=== PATIENT | male | born 1930 | race Caucasian/White ===

== ENCOUNTER 2018-05-17 11:34 | Inpatient (IN) | payer MEDICARE ==
[2018-05-17] MEDS ORDERED: SODIUM CHLORIDE 0.9% 1,000 ML IV STA (11:51)
[2018-05-17] MEDS ORDERED: SODIUM CHLORIDE 0.9% 500 ML IV ONE (11:53)
[2018-05-17 13:00] LABS: ALT 42 U/L (21-72); AST 75 U/L (17-59); Albumin 4.4 g/dL (3.5-5.0); Alkaline Phosphatase 87 U/L (38-126); Anion Gap 14 mmol/L; Blood Urea Nitrogen 18 mg/dL (9-20); Calcium 9.3 mg/dL (8.4-10.2); Carbon Dioxide 23 mmol/L (22-30); Chloride 100 mmol/L (98-107); Glucose 92 mg/dL (74-99); Potassium 3.7 mmol/L (3.5-5.1); Sodium 137 mmol/L (137-145); Total Bilirubin 1.2 mg/dL (0.2-1.3); Total Protein 6.4 g/dL (6.3-8.2)
[2018-05-17 13:03] LABS: HCT 44.6 % (39.0-53.0); HGB 15.4 gm/dL (13.0-17.5); MCH 31.4 pg (25.0-35.0); MCHC 34.5 g/dL (31.0-37.0); Mean Platelet Volume 7.6; Platelet Count 205 k/uL (150-450); RBC 4.91 m/uL (4.30-5.90); RDW 13.8 % (11.5-15.5)
[2018-05-17 13:05] LABS: INR 1.1 (<1.2); Partial Thromboplastin Time 24.6 sec (22.0-30.0); Prothrombin Time 10.4 sec (9.0-12.0)
[2018-05-17 13:27] LABS: Troponin I 0.029 ng/mL (0.000-0.034)
[2018-05-17 13:30] LABS: Creatine Kinase MB 14.2 ng/mL (0.0-2.4)
[2018-05-17 13:43] LABS: Band Neutrophils % 1 %; Lymphocytes # (M) 9.02 k/uL (1.0-4.8); Monocytes # (M) 0.22 k/uL (0-1.0); Neutrophils % (M) 58 %; Nucleated Red Blood Cells 0 /100 WBC (0-0); Total Cells Counted 200
--- NOTE | 2018-05-17 13:46 | CT ---
EXAMINATION TYPE: CT brain sylvia joseph DATE OF EXAM: 05/17/2018 COMPARISON: NONE HISTORY: Fall injury with headache and neck pain CT DLP: 1814.5 mGycm. Automated Exposure Control for Dose Reduction was Utilized. TECHNIQUE: CT scan of the head and cervical spine are performed without contrast. FINDINGS: There is no acute intracranial hemorrhage or midline shift identified. There is ventricul ar and sulcal prominence. Tadeo-white matter differentiation is fairly well preserved. Scleral calcifi cation both globes is present visualized paranasal sinuses are clear. There is vascular calcification distal internal carotid arteries bilaterally. The calvarium is intact. Cervical spine is visualized in its entirety from C1 through upper thoracic levels and demonstrates d extroconvex scoliotic curvature without evidence of acute fracture or dislocation. Prevertebral soft tissue appears within normal limits. The C1-C2 articulation is within normal limits on the coronal images. Vertebral body heights are maintained. There is moderate multilevel disc space narrowing C3-C4 throug h C5-C6 level. Spinal canal is grossly preserved. Review of axial images shows multilevel uncovertebr al facet degenerative changes contributing to multilevel neural foraminal narrowing. There is mild bi apical pleural/parenchymal scarring. There is moderate calcified plaque at bilateral carotid bulbs, l eft greater than right incidentally seen. Lung apices are clear. Thyroid gland is felt unremarkable. IMPRESSION: 1. There is no acute fracture or dislocation evident in the cervical spine. 2. No acute intracranial hemorrhage or midline shift is seen. Fairly moderate diffuse cerebral atroph y is noted.
[2018-05-17 13:48] LABS: Anisocytosis (M) Present
--- NOTE | 2018-05-17 13:50 | CT ---
EXAMINATION TYPE: CT ChestAbdPelvis w con DATE OF EXAM: 05/17/2018 COMPARISON: NONE HISTORY: Fall injury with pain. CT DLP: 1352.8 mGycm. Automated Exposure Control for Dose Reduction was Utilized. CONTRAST: CT scan of the thorax, abdomen and pelvis is performed with IV Contrast, patient injected with 100 mL of Isovue 300. Trauma protocol. FINDINGS: LUNGS: Dependent atelectasis in both lower lobes more prominent near diaphragms is redemonstrated. Th ere is mild biapical pleural/parenchymal scarring. No pleural effusion or pneumothorax is present. Tr acheobronchial tree is patent. MEDIASTINUM: There are no greater than 1 cm hilar or mediastinal lymph nodes. No cardiomegaly or pe ricardial effusion is seen. Coronary artery calcification is seen which is noted marker for coronary artery disease. OTHER: Bilateral gynecomastia is appreciated. LIVER/GB: No significant abnormality is appreciated. PANCREAS: No significant abnormality is seen. SPLEEN: No significant abnormality is seen. ADRENALS: No significant abnormality is seen. KIDNEYS: No significant abnormality is seen. BOWEL: Diverticula are seen throughout the colon most prominent in the left and sigmoid colon. There is no CT evidence for acute diverticulitis. There is suspected 1.8 cm lipoma or fat density ingested pill in the third portion of duodenum coronal image 53. No suspicious small or large bowel dilatation is present. GENITAL ORGANS: No gross abnormality seen. LYMPH NODES: No greater than 1cm abdominal or pelvic lymph nodes are appreciated. OSSEOUS STRUCTURES: Osseous structures are demineralized. There is mild to moderate compression type fracture deformity L2 level felt chronic as there is no suspicious lucency identified. There is mild to moderate multilevel anterior and lateral spurring in the thoracic spine. There is postsurgical jayy nge right humeral head. There is multilevel facet arthropathy in the mid to lower lumbar spine. There is spurring at bilateral sacroiliac joints. OTHER: There is mild to moderate calcified plaque of aorta extending into branch vessels. IMPRESSION: Mild to moderate compression type fracture L2 level favored chronic otherwise no acute os seous fracture, abnormal fluid collection, or evidence of solid organ injury in the thorax, abdomen, or pelvis. Correlate clinically.
--- NOTE | 2018-05-17 14:20 | XR ---
EXAMINATION TYPE: XR pelvis AP view DATE OF EXAM: 05/17/2018 COMPARISON: NONE HISTORY: Trauma, pain, fall TECHNIQUE: AP pelvis FINDINGS: Femoral heads articulate with the acetabulum. No acute fractures are evident. Sacroiliac chad ints and symphysis pubis are normal. Nonspecific bowel gas is present. Contrast is within urinary adrian dder. IMPRESSION: 1. No acute osseous abnormality pelvis
--- NOTE | 2018-05-17 14:21 | XR ---
EXAMINATION TYPE: XR chest 1V portable DATE OF EXAM: 05/17/2018 COMPARISON: NONE INDICATION: Trauma TECHNIQUE: Single frontal view of the chest is obtained. FINDINGS: The heart size is normal. The pulmonary vasculature is normal. The lungs are clear. No pneumothorax is evident. No displaced rib fractures are identified. IMPRESSION: 1. No acute pulmonary process.
[2018-05-17] MEDS ORDERED: cefTRIAXone 2,000 MG in SODIUM CHLORIDE 0.9% 100 ML IVPB STA (15:39)
[2018-05-17] MEDS ORDERED: SODIUM CHLORIDE 0.9% 1,000 ML IV ONE (15:40)
[2018-05-17] MEDS ORDERED: cefTRIAXone IN SWFI 2,000 MG/20 ML SYRINGE IVP ONE (15:45)
[2018-05-17] MEDS ORDERED: ONDANSETRON 4 MG/2 ML VIAL IVP PRN (15:55)
[2018-05-17] MEDS ORDERED: ACETAMINOPHEN TAB 325 MG TAB PO PRN (15:55)
[2018-05-17] MEDS ORDERED: NALOXONE 0.4 MG/ML 1 ML VIAL IV PRN (15:55)
--- NOTE | 2018-05-17 15:55 | ED ---
Fall HPI - General Chief Complaint: Fall Stated Complaint: Fall Time Seen by Provider: 05/17/18 11:46 Source: patient, EMS Mode of arrival: EMS - History of Present Illness Initial Comments: 27 years old male fell last night, he was unable to get up till this morning now when his neighbor's came to help he didn't fall from a height he said whole fellow male is complaining about the headache neck pain some discomfort in the torso no abdominal pain is complaining about the back pain and he has a history of back surgery complaining about the pain in the both hips and complaining about generalized weakness. No signs of TIA or CVA at this time - Related Data Home Medications Medication Instructions Recorded Confirmed Citalopram Hydrobromide [CeleXA] 20 mg PO DAILY 05/17/18 05/17/18 Furosemide [Lasix] 20 mg PO DAILY 05/17/18 05/17/18 Latanoprost [Xalatan 0.005%] 1 drop BOTH EYES HS 05/17/18 05/17/18 Potassium Chloride ER [K-Dur 10] 10 meq PO BID 05/17/18 05/17/18 Pravastatin Sodium [Pravachol] 10 mg PO HS 05/17/18 05/17/18 Tamsulosin HCl [Flomax] 0.4 mg PO Q12H 05/17/18 05/17/18 Travoprost [Travatan Z 0.004%] 1 drop BOTH EYES HS 05/17/18 05/17/18 metroNIDAZOLE 0.75% CREAM 1 applic TOPICAL BID PRN 05/17/18 05/17/18 [Metrocream] Allergies Allergy/AdvReac Type Severity Reaction Status Date / Time No Known Allergies Allergy Verified 05/17/18 12:28 Review of Systems ROS Statement: Those systems with pertinent positive or pertinent negative responses have been documented in the HPI. ROS Other: All systems not noted in ROS Statement are negative. Past Medical History Past Medical History: Hypertension Additional Past Medical History / Comment(s): Arthritis, bladder infections History of Any Multi-Drug Resistant Organisms: None Reported Past Surgical History: No Surgical Hx Reported Past Psychological History: No Psychological Hx Reported Smoking Status: Never smoker Past Alcohol Use History: None Reported Past Drug Use History: None Reported General Exam - General Exam Comments Initial Comments: General: The patient is awake and alert, GSS is 15, he is moderately distressed Skin: Skin is warm and dry and no rashes or lesions are noted. Eye: Pupils are equal, round and reactive to light, extra-ocular movements are intact; there is normal conjunctiva bilaterally. Ears, nose, mouth and throat: There are moist mucous membranes and no oral lesions. Neck: The neck is read C5 and C6 Cardiovascular: There is a regular rate and rhythm. No murmur, rub or gallop is appreciated. Respiratory: To auscultation bilateral, his breath sounds bilateral Gastrointestinal: Soft, non-distended, non-tender abdomen without masses or organomegaly noted. There is no rebound or guarding present. Bowel sounds are unremarkable. Back: There is under area over the L4 and L5 Musculoskeletal: Normal ROM, no tenderness, There is no pedal edema. There is no calf tenderness or swelling. No cords were appreciated. Neurological: CN II-XII intact, Cranial nerves III through XII are intact. There are no obvious motor or sensory deficits. Coordination appears grossly intact. Speech is normal. Psychiatric: Cooperative, appropriate mood & affect, normal judgment. Limitations: no limitations Course Vital Signs 05/17/18 05/17/18 05/17/18 11:38 12:30 15:00 Temperature 97.6 F Pulse Rate 99 92 Pulse Rate [ 96 Bilateral Radial] Respiratory 18 20 Rate Blood Pressure 191/81 171/78 O2 Sat by Pulse 99 96 Oximetry EKG is sinus rhythm with a first-degree block ventricular rate is 97 CT interval is 226 QRS duration is 114 QT/QTc is 390/495 review of this EKG does not reveal any ST elevation or ST depression Family medical Dr. Watson service considering urinary abdomen analysis well consult the Dr. Duvall Medical Decision Making - Lab Data Result diagrams: 05/17/18 12:30 05/17/18 12:30 Lab Results 05/17/18 05/17/18 05/17/18 Range/Units 12:30 12:30 12:30 WBC 22.0 H (3.8-10.6) k/uL RBC 4.91 (4.30-5.90) m/uL Hgb 15.4 (13.0-17.5) gm/dL Hct 44.6 (39.0-53.0) % MCV 91.0 (80.0-100.0) fL MCH 31.4 (25.0-35.0) pg MCHC 34.5 (31.0-37.0) g/dL RDW 13.8 (11.5-15.5) % Plt Count 205 (150-450) k/uL Neutrophils % (Manual) 58 % Band Neutrophils % 1 % Lymphocytes % (Manual) 41 % Monocytes % (Manual) 1 % Neutrophils # (Manual) 12.90 H (1.3-7.7) k/uL Lymphocytes # (Manual) 9.02 H (1.0-4.8) k/uL Monocytes # (Manual) 0.22 (0-1.0) k/uL Nucleated RBCs 0 (0-0) /100 WBC Anisocytosis (manual) Present PT (9.0-12.0) sec INR (<1.2) APTT (22.0-30.0) sec Sodium 137 (137-145) mmol/L Potassium 3.7 (3.5-5.1) mmol/L Chloride 100 (98-107) mmol/L Carbon Dioxide 23 (22-30) mmol/L Anion Gap 14 mmol/L BUN 18 (9-20) mg/dL Creatinine 0.71 (0.66-1.25) mg/dL Est GFR (CKD-EPI)AfAm >90 (>60 ml/min/1.73 sqM) Est GFR (CKD-EPI)NonAf 86 (>60 ml/min/1.73 sqM) Glucose 92 (74-99) mg/dL Plasma Lactic Acid Abbe (0.7-2.0) mmol/L Calcium 9.3 (8.4-10.2) mg/dL Total Bilirubin 1.2 (0.2-1.3) mg/dL AST 75 H (17-59) U/L ALT 42 (21-72) U/L Alkaline Phosphatase 87 (38-126) U/L Total Creatine Kinase 2855 H (55-170) U/L CK-MB (CK-2) 14.2 H* (0.0-2.4) ng/mL CK-MB (CK-2) Rel Index Troponin I 0.029 (0.000-0.034) ng/mL Total Protein 6.4 (6.3-8.2) g/dL Albumin 4.4 (3.5-5.0) g/dL 05/17/18 05/17/18 Range/Units 12:30 12:30 WBC (3.8-10.6) k/uL RBC (4.30-5.90) m/uL Hgb (13.0-17.5) gm/dL Hct (39.0-53.0) % MCV (80.0-100.0) fL MCH (25.0-35.0) pg MCHC (31.0-37.0) g/dL RDW (11.5-15.5) % Plt Count (150-450) k/uL Neutrophils % (Manual) % Band Neutrophils % % Lymphocytes % (Manual) % Monocytes % (Manual) % Neutrophils # (Manual) (1.3-7.7) k/uL Lymphocytes # (Manual) (1.0-4.8) k/uL Monocytes # (Manual) (0-1.0) k/uL Nucleated RBCs (0-0) /100 WBC Anisocytosis (manual) PT 10.4 (9.0-12.0) sec INR 1.1 (<1.2) APTT 24.6 (22.0-30.0) sec Sodium (137-145) mmol/L Potassium (3.5-5.1) mmol/L Chloride (98-107) mmol/L Carbon Dioxide (22-30) mmol/L Anion Gap mmol/L BUN (9-20) mg/dL Creatinine (0.66-1.25) mg/dL Est GFR (CKD-EPI)AfAm (>60 ml/min/1.73 sqM) Est GFR (CKD-EPI)NonAf (>60 ml/min/1.73 sqM) Glucose (74-99) mg/dL Plasma Lactic Acid Abbe 1.2 (0.7-2.0) mmol/L Calcium (8.4-10.2) mg/dL Total Bilirubin (0.2-1.3) mg/dL AST (17-59) U/L ALT (21-72) U/L Alkaline Phosphatase (38-126) U/L Total Creatine Kinase (55-170) U/L CK-MB (CK-2) (0.0-2.4) ng/mL CK-MB (CK-2) Rel Index Troponin I (0.000-0.034) ng/mL Total Protein (6.3-8.2) g/dL Albumin (3.5-5.0) g/dL Critical Care Time Total Critical Care Time: 30 Critical Care Time: Rate patient's fall and not being able to get up and complaining about the back pain and got concerned about back injury or spinal compression or cord compression CT trauma was done electively CT trauma is unremarkable except except a L2 compression fracture was noticed radiologist do not know if is acute or chronic Achilles seems acute because he is very tender there and also noticed some CT quite elevated 2855 MB was 14.2 and a troponin is negative chest x-ray and pelvic x-ray are unremarkable CT of cervical spine is normal and CT brain is fine L2 compression fracture, the abdomen is is an elevated white count was noticed there is a question of starting the sepsis protocol to the reliability will get a broad-spectrum antibiotics I don't have a urinalysis at this time urinalysis will be sent as soon as urine sample was obtained Disposition Clinical Impression: Compression fracture of L2, Rhabdomyolysis, Leukocytosis Disposition: ADMITTED IP TO THIS HOSP Condition: Good Referrals: Preston Strange MD [Primary Care Provider] - 1-2 days
[2018-05-17 16:20] LABS: Appearance,Urine Clear (Clear); Bacteria,Urine Rare /hpf; Bilirubin,Urine Negative (Negative); Blood,Urine Trace (Negative); Color,Urine Yellow; Glucose,Urine (UA) Negative (Negative); Ketones,Urine 2+ (Negative); Leukocyte Esterase,Urine Negative (Negative); Mucus,Urine Rare /hpf; Nitrite,Urine Negative (Negative); PH, Urine 5.5 (5.0-8.0); Protein,Urine Trace (Negative); RBC,Urine <1 /hpf (0-5); Specific Gravity,Urine 1.038 (1.001-1.035); Urobilinogen,Urine <2.0 mg/dL (<2.0); WBC,Urine <1 /hpf (0-5)
[2018-05-17] MEDS: MORPHINE SULFATE 2 MG/ML SYRINGE IV PRN (16:28)
[2018-05-17] MEDS ORDERED: hydrALAZINE HCL 25 MG TAB PO PRN (17:11)
--- NOTE | 2018-05-17 17:24 | P.HPIM ---
History of Present Illness As a pleasant 87 years old male with past medical history of hypertension, arthritis, bladder infection become because of fall, as per patient he was trying to walk to his [employer] last night when he tripped and fell and hit his head, he didn't lose his consciousness. But he couldn't get up and he stayed overnight and he started shunting till his neighbor heard him next day afternoon. Patient currently denies chest pain, no dyspnea, no dizziness or syncope. No change in urine or bowel habits. As per patient he can control his urine, no fever. Patient states he has chronic left lower extremity weakness over 6 months and his been stable. As per patient usually walks short distances but he can do some shopping and at baseline and his been using a cane for about a year, although he has a walker but he hasn't been using it much. In the emergency room patient was afebrile, hypertensive. He has CT of the abdomen/pelvis and chest which showed mild to moderate compression of fracture of L2 possible chronic rather than acute as per radiology report. Pelvic x- rays negative. CT of the head and neck were negative for acute process. Chest x-ray is negative for acute pulmonary process. In the ED patient was found to have leukocytosis of 22K.. Sodium 137, potassium 3.7, creatinine 0.7. High creatinine kinase at 2855. UA wasn't suspicious for infection. Past Medical History Past Medical History: Hypertension Additional Past Medical History / Comment(s): Arthritis, bladder infections History of Any Multi-Drug Resistant Organisms: None Reported Past Surgical History: No Surgical Hx Reported Past Psychological History: No Psychological Hx Reported Smoking Status: Never smoker Past Alcohol Use History: None Reported Past Drug Use History: None Reported Medications and Allergies Home Medications Medication Instructions Recorded Confirmed Type Citalopram Hydrobromide [CeleXA] 20 mg PO DAILY 05/17/18 05/17/18 History Furosemide [Lasix] 20 mg PO DAILY 05/17/18 05/17/18 History Latanoprost [Xalatan 0.005%] 1 drop BOTH EYES HS 05/17/18 05/17/18 History Potassium Chloride ER [K-Dur 10] 10 meq PO BID 05/17/18 05/17/18 History Pravastatin Sodium [Pravachol] 10 mg PO HS 05/17/18 05/17/18 History Tamsulosin HCl [Flomax] 0.4 mg PO Q12H 05/17/18 05/17/18 History Travoprost [Travatan Z 0.004%] 1 drop BOTH EYES HS 05/17/18 05/17/18 History metroNIDAZOLE 0.75% CREAM 1 applic TOPICAL BID PRN 05/17/18 05/17/18 History [Metrocream] Allergies Allergy/AdvReac Type Severity Reaction Status Date / Time No Known Allergies Allergy Verified 05/17/18 12:28 Physical Exam Vitals: Vital Signs Temp Pulse Pulse Resp BP Pulse Ox 05/17/18 15:00 92 20 171/78 96 05/17/18 12:30 96 05/17/18 11:38 97.6 F 99 18 191/81 99 Intake and Output 05/17/18 05/17/18 05/17/18 06:59 14:59 22:59 Other: Weight 97.522 kg GENERAL: The patient is alert and oriented x3, not in any acute distress. Well developed, well nourished. HEENT: Pupils are round and equally reacting to light. EOMI. No scleral icterus. No conjunctival pallor. Normocephalic, atraumatic. No pharyngeal erythema. No thyromegaly. CARDIOVASCULAR: S1 and S2 present. No murmurs, rubs, or gallops. PULMONARY: Chest is clear to auscultation, no wheezing or crackles. ABDOMEN: Soft, nontender, nondistended, normoactive bowel sounds. No palpable organomegaly. MUSCULOSKELETAL: No joint swelling or deformity. EXTREMITIES: No cyanosis, clubbing, or pedal edema. NEUROLOGICAL: Gross neurological examination did not reveal any focal deficits. Patient lower examination shows symmetrical strength in both lower extremity SKIN: No rashes. Results CBC & Chem 7: 05/17/18 12:30 05/17/18 12:30 Labs: Abnormal Lab Results - Last 24 Hours (Table) 05/17/18 05/17/18 05/17/18 Range/Units 12:30 12:30 12:30 WBC 22.0 H (3.8-10.6) k/uL Neutrophils # (Manual) 12.90 H (1.3-7.7) k/uL Lymphocytes # (Manual) 9.02 H (1.0-4.8) k/uL AST 75 H (17-59) U/L Total Creatine Kinase 2855 H (55-170) U/L CK-MB (CK-2) 14.2 H* (0.0-2.4) ng/mL Ur Specific Malone (1.001-1.035) Urine Protein (Negative) Urine Ketones (Negative) Urine Blood (Negative) Urine Bacteria (None) /hpf Urine Mucus (None) /hpf 05/17/18 Range/Units 15:53 WBC (3.8-10.6) k/uL Neutrophils # (Manual) (1.3-7.7) k/uL Lymphocytes # (Manual) (1.0-4.8) k/uL AST (17-59) U/L Total Creatine Kinase (55-170) U/L CK-MB (CK-2) (0.0-2.4) ng/mL Ur Specific Malone 1.038 H (1.001-1.035) Urine Protein Trace H (Negative) Urine Ketones 2+ H (Negative) Urine Blood Trace H (Negative) Urine Bacteria Rare H (None) /hpf Urine Mucus Rare H (None) /hpf Assessment and Plan Plan: -Acute rhabdomyolysis, with high CPK. Start IV hydration and follow-up creatine kinase level. Hold Lasix 20 mg daily.. Continue with pain management -History of fall. CT of the chest and abdomen shows L2 fracture could be chronic more than acute. Call orthopedic consult -History of BPH continue with the Flomax -Hyperlipidemia continue with statin -Hypertension, start Norvasc 5 -Leukocytosis, patient got 1 dose of ceftriaxone and EGD. We'll check a blood culture. Follow-up white cell count. UA and chest x-ray were negative for infection. No diarrhea as per patient. No rash DVT prophylaxis heparin GI prophylaxis Pepcid CODE STATUS full code as per patient discussed Current prognosis is guarded given multiple problems and severity PT/OT is pending Recommendation discussed with staff ED Time with Patient: Greater than 30
[2018-05-17] MEDS: SODIUM CHLORIDE 0.9% 1,000 ML IV SCH ×3 (18:01→23:25)
[2018-05-17] MEDS: amLODIPine 5 MG TAB PO SCH (19:41)
[2018-05-17] MEDS: HEPARIN SODIUM,PORCINE 5,000 UNIT/ML 1 ML VIAL SQ SCH (19:54)
[2018-05-17] MEDS: FAMOTIDINE 20 MG/2 ML VIAL IV SCH (19:54)
[2018-05-17] MEDS: POTASSIUM CHLORIDE ER 10 MEQ TAB.ER.PRT PO SCH (19:55)
[2018-05-17] MEDS: PRAVASTATIN SODIUM 20 MG TAB PO SCH (19:55)
[2018-05-17] MEDS: LATANOPROST 0.005% OPHTH DROPS 2.5 ML BTL BOTH EYES SCH (20:03)
[2018-05-17] MEDS: TAMSULOSIN 0.4 MG CAP.ER.24H PO SCH (20:03)
[2018-05-17] MEDS ORDERED: NON-FORMULARY DRUG (Travoprost [Travatan Z 0.004%] 1 DROP) BOTH EYES SCH (21:00)
[2018-05-18] MEDS: SODIUM CHLORIDE 0.9% 1,000 ML IV SCH ×5 (04:23→18:23)
[2018-05-18 07:40] LABS: ALT 38 U/L (21-72); AST 62 U/L (17-59); Alkaline Phosphatase 61 U/L (38-126); Anion Gap 9 mmol/L; Bilirubin, Delta 0.1 mg/dL (0.0-0.2); Bilirubin,Unconjugated 0.5 mg/dL (0.0-1.1); Blood Urea Nitrogen 16 mg/dL (9-20); Calcium 8.1 mg/dL (8.4-10.2); Carbon Dioxide 25 mmol/L (22-30); Chloride 103 mmol/L (98-107); Glucose 83 mg/dL (74-99); Potassium 3.5 mmol/L (3.5-5.1); Sodium 137 mmol/L (137-145); Total Bilirubin 0.6 mg/dL (0.2-1.3); Total Protein 4.8 g/dL (6.3-8.2)
[2018-05-18 07:51] LABS: Creatine Kinase 2016 U/L (55-170)
[2018-05-18 08:09] LABS: HCT 37.1 % (39.0-53.0); HGB 12.6 gm/dL (13.0-17.5); MCH 31.4 pg (25.0-35.0); MCHC 33.9 g/dL (31.0-37.0); MCV 92.4 fL (80.0-100.0); Mean Platelet Volume 7.6; Platelet Count 155 k/uL (150-450); RBC 4.01 m/uL (4.30-5.90); RDW 13.7 % (11.5-15.5)
[2018-05-18 08:38] LABS: Eosinophils # (M) 0.14 k/uL (0-0.7); Lymphocytes # (M) 6.86 k/uL (1.0-4.8); Neutrophils % (M) 45 %; Nucleated Red Blood Cells 0 /100 WBC (0-0); Polychromasia Present; Total Cells Counted 100
[2018-05-18] MEDS: amLODIPine 5 MG TAB PO SCH (08:53)
[2018-05-18] MEDS: HEPARIN SODIUM,PORCINE 5,000 UNIT/ML 1 ML VIAL SQ SCH ×2 (08:53→20:02)
[2018-05-18] MEDS: FAMOTIDINE 20 MG/2 ML VIAL IV SCH ×2 (08:53→20:02)
[2018-05-18] MEDS: POTASSIUM CHLORIDE ER 10 MEQ TAB.ER.PRT PO SCH ×2 (08:54→20:02)
[2018-05-18] MEDS: CITALOPRAM HYDROBROMIDE 20 MG TAB PO SCH (08:54)
[2018-05-18] MEDS: TAMSULOSIN 0.4 MG CAP.ER.24H PO SCH ×2 (08:54→20:01)
[2018-05-18] MEDS: MORPHINE SULFATE 2 MG/ML SYRINGE IV PRN (08:54)
[2018-05-18] MEDS ORDERED: FUROSEMIDE 20 MG TAB PO SCH (09:00)
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
[2018-05-18] MEDS: methylPREDNISolone SOD SUCCI 125 MG/2 ML VIAL IV SCH ×2 (11:15→20:01)
--- NOTE | 2018-05-18 11:27 | P.NPCON ---
History of Present Illness - Reason for Consult acute renal failure - History of Present Illness Reason for consultation: Rhabdomyolysis History of present illness: Patient is a 87-year-old male seen in renal consultation for rhabdomyolysis. Patient sustained a fall and was unable to get up. Patient states he was down for over 10 hours but was gradually able to crawl. His neighbor heard him and called the evidence. Patient's GFR is at baseline. His CPK level was elevated at 2855 on admission. He is currently maintained on normal saline at 100 mL an hour. CPK level is down to 2016 today. He did have a CAT scan with IV contrast on May 17 which revealed L2 compression fracture. Chest x-ray revealed no evidence of fluid overload. He denies any vomiting or diarrhea. Denies chest pain or shortness of breath. Denies any personal or family history of kidney disease. Hemodynamically stable. Vital signs are stable. General: The patient appeared well nourished and normally developed. HEENT: Head exam is unremarkable. Neck is without jugular venous distension. LUNGS: Lungs are clear to auscultation and percussion. Breath sounds decreased. HEART: Rate and Rhythm are regular. First and second heart sounds normal. No murmurs, rubs or gallops. ABDOMEN: Abdominal exam reveals normal bowel sounds. Non-tender and non- distended. No evidence of peritonitis. EXTREMITITES: No clubbing, cyanosis, or edema. Past Medical History Past Medical History: Hypertension Additional Past Medical History / Comment(s): Arthritis, bladder infections History of Any Multi-Drug Resistant Organisms: None Reported Past Surgical History: No Surgical Hx Reported Additional Past Surgical History / Comment(s): skin cancer removed, rt shoulder , cystoscopy/bladder sx for cancer Past Anesthesia/Blood Transfusion Reactions: No Reported Reaction Smoking Status: Never smoker - Past Family History Father Family Medical History: Myocardial Infarction ([place]) Mother Family Medical History: Myocardial Infarction ([place]) Additional Family Medical History / Comment(s): multiple miscarriages Medications and Allergies Home Medications Medication Instructions Recorded Confirmed Type Citalopram Hydrobromide [CeleXA] 20 mg PO DAILY 05/17/18 05/17/18 History Furosemide [Lasix] 20 mg PO DAILY 05/17/18 05/17/18 History Latanoprost [Xalatan 0.005%] 1 drop BOTH EYES HS 05/17/18 05/17/18 History Potassium Chloride ER [K-Dur 10] 10 meq PO BID 05/17/18 05/17/18 History Pravastatin Sodium [Pravachol] 10 mg PO HS 05/17/18 05/17/18 History Tamsulosin HCl [Flomax] 0.4 mg PO Q12H 05/17/18 05/17/18 History Travoprost [Travatan Z 0.004%] 1 drop BOTH EYES HS 05/17/18 05/17/18 History metroNIDAZOLE 0.75% CREAM 1 applic TOPICAL BID PRN 05/17/18 05/17/18 History [Metrocream] Allergies Allergy/AdvReac Type Severity Reaction Status Date / Time No Known Allergies Allergy Verified 05/17/18 12:28 Physical Exam Vitals: Vital Signs Temp Pulse Pulse Pulse Resp BP BP 05/18/18 05:27 97.5 F L 82 16 130/68 05/17/18 22:29 98.3 F 74 16 132/55 05/17/18 19:39 85 113/59 05/17/18 18:17 97 F L 92 22 170/76 05/17/18 17:00 98.3 F 95 18 176/83 05/17/18 15:00 92 20 171/78 05/17/18 12:30 96 05/17/18 11:38 97.6 F 99 18 191/81 Pulse Ox 05/18/18 05:27 93 L 05/17/18 22:29 94 L 05/17/18 19:39 05/17/18 18:17 95 05/17/18 17:00 98 05/17/18 15:00 96 05/17/18 12:30 05/17/18 11:38 99 Intake and Output 05/17/18 05/18/18 05/18/18 22:59 06:59 14:59 Intake Total 590 800 Output Total 400 Balance 590 400 Intake: Intake, IV Titration 800 Amount Sodium Chloride 0.9% 1, 800 000 ml @ 100 mls/hr IV . Q10H [facility] Rx#:[id number] Oral 590 Output: Urine 400 Other: Voiding Method Urinal Urinal Urinal # Voids 2 Results - Lab Results Most recent lab results Calcium 8.1 mg/dL (8.4-10.2) L 05/18/18 06:58 05/18/18 06:58 05/18/18 06:58 Assessment and Plan Plan: Assessment: 1. Mild rhabdomyolysis secondary to fall. Improving with IV hydration. GFR at baseline. 2. Hypokalemia secondary to poor oral intake and diuretics he was taking at home. 3. Benign hypertension. Controlled. Plan: Continue normal saline at 100 mL an hour. Continue to hold diuretics for now. Maintain potassium supplementation 10 mEq twice daily. Check magnesium level. Repeat electrolytes in the morning. Thank you for the consultation. I will continue to follow the patient with you during his hospital stay.
--- NOTE | 2018-05-18 13:33 | P.PN ---
Subjective As a pleasant 87 years old male with past medical history of hypertension, arthritis, bladder infection become because of fall, as per patient he was trying to walk to his [facility] last night when he tripped and fell and hit his head, he didn't lose his consciousness. But he couldn't get up and he stayed overnight and he started shunting till his neighbor heard him next day afternoon. Patient currently denies chest pain, no dyspnea, no dizziness or syncope. No change in urine or bowel habits. As per patient he can control his urine, no fever. Patient states he has chronic left lower extremity weakness over 6 months and his been stable. As per patient usually walks short distances but he can do some shopping and at baseline and his been using a cane for about a year, although he has a walker but he hasn't been using it much. In the emergency room patient was afebrile, hypertensive. He has CT of the abdomen/pelvis and chest which showed mild to moderate compression of fracture of L2 possible chronic rather than acute as per radiology report. Pelvic x- rays negative. CT of the head and neck were negative for acute process. Chest x-ray is negative for acute pulmonary process. In the ED patient was found to have leukocytosis of 22K.. Sodium 137, potassium 3.7, creatinine 0.7. High creatinine kinase at 2855. UA wasn't suspicious for infection. Objective - Vital Signs Vital signs: Vital Signs Temp 97.5 F L 05/18/18 05:27 Pulse 82 05/18/18 05:27 Resp 16 05/18/18 05:27 BP 130/68 05/18/18 05:27 Pulse Ox 93 L 05/18/18 05:27 Intake & Output 05/17/18 05/18/18 05/18/18 18:59 06:59 18:59 Intake Total 1390 Output Total 400 Balance 990 Weight 97.522 kg Intake: Intake, IV Titration 800 Amount Sodium Chloride 0.9% 1, 800 000 ml @ 100 mls/hr IV . Q10H [facility] Rx#:[id number] Oral 590 Output: Urine 400 Other: Voiding Method Urinal Urinal # Voids 2 - Exam GENERAL: The patient is alert and oriented x3, not in any acute distress. Well developed, well nourished. HEENT: Pupils are round and equally reacting to light. EOMI. No scleral icterus. No conjunctival pallor. Normocephalic, atraumatic. No pharyngeal erythema. No thyromegaly. CARDIOVASCULAR: S1 and S2 present. No murmurs, rubs, or gallops. PULMONARY: Chest is clear to auscultation, no wheezing or crackles. ABDOMEN: Soft, nontender, nondistended, normoactive bowel sounds. No palpable organomegaly. MUSCULOSKELETAL: No joint swelling or deformity. EXTREMITIES: No cyanosis, clubbing, or pedal edema. NEUROLOGICAL: Gross neurological examination did not reveal any focal deficits. Patient lower examination shows symmetrical strength in both lower extremity SKIN: No rashes. - Labs CBC & Chem 7: 05/18/18 06:58 05/18/18 06:58 Labs: Abnormal Lab Results - Last 24 Hours (Table) 05/17/18 05/17/18 05/17/18 Range/Units 12:30 12:30 15:53 WBC (3.8-10.6) k/uL RBC (4.30-5.90) m/uL Hgb (13.0-17.5) gm/dL Hct (39.0-53.0) % Neutrophils # (Manual) 12.90 H (1.3-7.7) k/uL Lymphocytes # (Manual) 9.02 H (1.0-4.8) k/uL Calcium (8.4-10.2) mg/dL AST (17-59) U/L Creatine Kinase (55-170) U/L Total Creatine Kinase 2855 H (55-170) U/L CK-MB (CK-2) 14.2 H* (0.0-2.4) ng/mL Total Protein (6.3-8.2) g/dL Albumin (3.5-5.0) g/dL Ur Specific [place] 1.038 H (1.001-1.035) Urine Protein Trace H (Negative) Urine Ketones 2+ H (Negative) Urine Blood Trace H (Negative) Urine Bacteria Rare H (None) /hpf Urine Mucus Rare H (None) /hpf 05/18/18 05/18/18 Range/Units 06:58 06:58 WBC 14.0 H (3.8-10.6) k/uL RBC 4.01 L (4.30-5.90) m/uL Hgb 12.6 L (13.0-17.5) gm/dL Hct 37.1 L (39.0-53.0) % Neutrophils # (Manual) (1.3-7.7) k/uL Lymphocytes # (Manual) 6.86 H (1.0-4.8) k/uL Calcium 8.1 L (8.4-10.2) mg/dL AST 62 H (17-59) U/L Creatine Kinase 2016 H (55-170) U/L Total Creatine Kinase (55-170) U/L CK-MB (CK-2) (0.0-2.4) ng/mL Total Protein 4.8 L (6.3-8.2) g/dL Albumin 3.0 L (3.5-5.0) g/dL Ur Specific [place] (1.001-1.035) Urine Protein (Negative) Urine Ketones (Negative) Urine Blood (Negative) Urine Bacteria (None) /hpf Urine Mucus (None) /hpf Microbiology - Last 24 Hours (Table) 05/17/18 15:53 Urine Culture - Preliminary Urine,Clean Catch Assessment and Plan Plan: -Acute rhabdomyolysis, with high CPK. Start IV hydration and follow-up creatine kinase level is trending down. Hold Lasix 20 mg daily.. Continue with pain management -History of fall. CT of the chest and abdomen shows L2 fracture could be chronic more than acute. orthopedic consult is appreciated and he recommended a brace, steroids and patient might benefit from penitentiary placement -History of BPH continue with the Flomax -Hyperlipidemia continue with statin -Hypertension, start Norvasc 5, blood pressure is better controlled -Leukocytosis, patient got 1 dose of ceftriaxone and EGD. We'll check a blood culture. Follow-up white cell count is trending down from 22K to 14 K. UA and chest x-ray were negative for infection. No diarrhea as per patient. No rash DVT prophylaxis heparin GI prophylaxis Pepcid CODE STATUS full code as per patient discussed Current prognosis is guarded given multiple problems and severity PT/OT is pending for the patient. Most likely patient will benefit from penitentiary placement either for short or long-term
[2018-05-18] MEDS: LATANOPROST 0.005% OPHTH DROPS 2.5 ML BTL BOTH EYES SCH (20:02)
[2018-05-18] MEDS: PRAVASTATIN SODIUM 20 MG TAB PO SCH (20:05)
[2018-05-19] MEDS: SODIUM CHLORIDE 0.9% 1,000 ML IV SCH ×3 (05:44→12:47)
[2018-05-19] MEDS: amLODIPine 5 MG TAB PO SCH (08:55)
[2018-05-19] MEDS: CITALOPRAM HYDROBROMIDE 20 MG TAB PO SCH (08:55)
[2018-05-19] MEDS: TAMSULOSIN 0.4 MG CAP.ER.24H PO SCH ×2 (08:55→20:15)
[2018-05-19] MEDS: POTASSIUM CHLORIDE ER 10 MEQ TAB.ER.PRT PO SCH (08:55)
[2018-05-19] MEDS: HEPARIN SODIUM,PORCINE 5,000 UNIT/ML 1 ML VIAL SQ SCH ×2 (08:55→20:15)
[2018-05-19] MEDS: methylPREDNISolone SOD SUCCI 125 MG/2 ML VIAL IV SCH ×2 (08:56→20:15)
[2018-05-19] MEDS: FAMOTIDINE 20 MG/2 ML VIAL IV SCH ×2 (08:56→20:15)
[2018-05-19 09:08] LABS: ALT 39 U/L (21-72); AST 41 U/L (17-59); Albumin 3.3 g/dL (3.5-5.0); Alkaline Phosphatase 58 U/L (38-126); Anion Gap 9 mmol/L; Bilirubin, Delta 0.2 mg/dL (0.0-0.2); Bilirubin,Unconjugated 0.1 mg/dL (0.0-1.1); Blood Urea Nitrogen 18 mg/dL (9-20); Calcium 8.4 mg/dL (8.4-10.2); Carbon Dioxide 25 mmol/L (22-30); Chloride 106 mmol/L (98-107); Creatine Kinase 876 U/L (55-170); Glucose 126 mg/dL (74-99); Magnesium 2.4 mg/dL (1.6-2.3); Potassium 4.4 mmol/L (3.5-5.1); Sodium 140 mmol/L (137-145); Total Bilirubin 0.3 mg/dL (0.2-1.3); Total Protein 5.2 g/dL (6.3-8.2)
[2018-05-19 09:15] LABS: HCT 36.9 % (39.0-53.0); HGB 12.8 gm/dL (13.0-17.5); MCH 31.9 pg (25.0-35.0); MCHC 34.6 g/dL (31.0-37.0); MCV 92.2 fL (80.0-100.0); Mean Platelet Volume 7.4; Platelet Count 173 k/uL (150-450); RBC 4.01 m/uL (4.30-5.90); RDW 13.4 % (11.5-15.5); WBC 17.9 k/uL (3.8-10.6)
[2018-05-19 09:32] LABS: Lymphocytes # (M) 6.98 k/uL (1.0-4.8); Monocytes # (M) 1.97 k/uL (0-1.0); Neutrophils # (M) 8.95 k/uL (1.3-7.7); Neutrophils % (M) 50 %; Nucleated Red Blood Cells 0 /100 WBC (0-0); Polychromasia Present; Total Cells Counted 100
--- NOTE | 2018-05-19 11:29 | P.PN ---
Subjective Patient is seen in follow-up for rhabdomyolysis. Creatinine is at baseline. CPK level was 2855 on admission and is down to 876 today. Patient presented after sustaining a fall. He is currently resting in bed. He is awake and alert. Denies chest pain or shortness of breath. Oral intake is good. He is maintained on normal saline at 100 mL an hour. Vital signs are stable. General: The patient appeared well nourished and normally developed. HEENT: Head exam is unremarkable. Neck is without jugular venous distension. LUNGS: Lungs are clear to auscultation and percussion. Breath sounds decreased. HEART: Rate and Rhythm are regular. First and second heart sounds normal. No murmurs, rubs or gallops. ABDOMEN: Abdominal exam reveals normal bowel sounds. Non-tender and non- distended. No evidence of peritonitis. EXTREMITITES: No clubbing, cyanosis, or edema. Objective - Vital Signs Vital signs: Vital Signs Temp 97.7 F 05/19/18 05:18 Pulse 81 05/19/18 05:18 Resp 16 05/19/18 05:18 BP 134/68 05/19/18 05:18 Pulse Ox 96 05/19/18 05:18 Intake & Output 05/18/18 05/19/18 05/19/18 18:59 06:59 18:59 Intake Total 800 1150 Balance 800 1150 Intake: Intake, IV Titration 800 1150 Amount Sodium Chloride 0.9% 1, 800 1150 000 ml @ 100 mls/hr IV . Q10H [facility] Rx#:[id number] Other: Voiding Method Urinal Urinal Urinal # Voids 2 - Labs CBC & Chem 7: 05/19/18 08:11 05/19/18 08:11 Labs: Abnormal Lab Results - Last 24 Hours (Table) 05/19/18 05/19/18 Range/Units 08:11 08:11 WBC 17.9 H (3.8-10.6) k/uL RBC 4.01 L (4.30-5.90) m/uL Hgb 12.8 L (13.0-17.5) gm/dL Hct 36.9 L (39.0-53.0) % Neutrophils # (Manual) 8.95 H (1.3-7.7) k/uL Lymphocytes # (Manual) 6.98 H (1.0-4.8) k/uL Monocytes # (Manual) 1.97 H (0-1.0) k/uL Glucose 126 H (74-99) mg/dL Magnesium 2.4 H (1.6-2.3) mg/dL Creatine Kinase 876 H (55-170) U/L Total Protein 5.2 L (6.3-8.2) g/dL Albumin 3.3 L (3.5-5.0) g/dL Microbiology - Last 24 Hours (Table) 05/17/18 15:53 Urine Culture - Final Urine,Clean Catch 05/17/18 18:30 Blood Culture - Preliminary Blood No Growth after 24 hours 05/17/18 16:13 Blood Culture - Preliminary Blood No Growth after 24 hours Assessment and Plan Plan: Assessment: 1. Mild rhabdomyolysis secondary to fall. Improving with IV hydration. GFR at baseline. 2. Hypokalemia secondary to poor oral intake and diuretics he was taking at home. Improved. 3. Benign hypertension. Controlled. Plan: Continue normal saline at 100 mL an hour. Continue to hold diuretics for now. Discontinue potassium supplementation. Repeat electrolytes in the morning.
--- NOTE | 2018-05-19 15:55 | P.PN ---
Progress Note - Text Progress Note Date: 05/19/18 Patient is a pleasant 87-year-old male who is seen and examined at bedside for follow-up evaluation for acute left-sided low back pain status post fall. Patient had fallen outside his home and later overnight for some was able to find him. He is currently being treated for rhabdomyolysis. Patient states since being seen him yesterday he's had significant improvement of his low back pain. He has not worked with physical therapy today. Nursing states they have had difficulty helping him ambulate. He continues to admit that if he gets down on the ground he has significant difficulty with getting up off the ground. He is able to move his legs independently in the bed today without significant difficulty. He is able to roll over in bed today without significant difficulty. Overall, he feels he has improved as compared to yesterday. He does have a history of a previous L2 fracture. Physical exam: Patient is awake, alert, and oriented 3 Vital signs stable Good chest excursion with deep inspiration and expiration Abdomen soft nontender Examination of lumbar spine reveals skin is intact with no abrasions, lacerations, or bruises; no erythema, purulence or signs of infection No significant pain on palpation of the lumbar spine Dorsiflexion and plantarflexion positive sustained bilaterally Lower extremity strength 5/5 bilaterally Patient is able to move legs independently in bed without difficulty No signs or symptoms of DVT; no calf pain No pain with internal and external rotation of the hips bilaterally Neurovascularly intact Assessment: Acute on chronic low back pain Status post fall 3 days ago L2 compression fracture deformity of undetermined age Rhabdomyolysis due to extended position status post fall Plan: 1. We will currently plan to continue with conservative treatment as previously planned. A prescription has been written for an LSO brace. Once this brace has been delivered and fitted properly, he may wear this brace for comfort support during increased activities and ambulation. He does not wear this brace while lying in bed or bathing. He is not experiencing any lower extremity radiculopathy or specific weakness bilaterally. He may continue to work with physical therapy to increase mobility and ambulation. He'll most likely plan for discharge to a rehabilitation facility at the time of discharge prior to returning home. 2. Medicine is continue following the patient for further treatment and evaluation of rhabdomyolysis and other medical conditions 3. Once his brace has been delivered and fitted properly, patient is clear for discharge from orthopedic standpoint 4. Patient may plan to follow-up with Collin Hanna PA-C or Dr. Paco Stewart at [facility] in approximately 2-3 weeks following discharge 5. Patient has been discussed in detail with Dr. Paco Stewart and agrees with this plan
--- NOTE | 2018-05-19 16:08 | P.PN ---
Subjective As a pleasant 87 years old male with past medical history of hypertension, arthritis, bladder infection become because of fall, as per patient he was trying to walk [facility] last night when he tripped and fell and hit his head, he didn't lose his consciousness. But he couldn't get up and he stayed overnight and he started shunting till his neighbor heard him next day afternoon. Patient currently denies chest pain, no dyspnea, no dizziness or syncope. No change in urine or bowel habits. As per patient he can control his urine, no fever. Patient states he has chronic left lower extremity weakness over 6 months and his been stable. As per patient usually walks short distances but he can do some shopping and at baseline and his been using a cane for about a year, although he has a walker but he hasn't been using it much. In the emergency room patient was afebrile, hypertensive. He has CT of the abdomen/pelvis and chest which showed mild to moderate compression of fracture of L2 possible chronic rather than acute as per radiology report. Pelvic x- rays negative. CT of the head and neck were negative for acute process. Chest x-ray is negative for acute pulmonary process. In the ED patient was found to have leukocytosis of 22K.. Sodium 137, potassium 3.7, creatinine 0.7. High creatinine kinase at 2855. UA wasn't suspicious for infection. Objective - Vital Signs Vital signs: Vital Signs Temp 97.7 F 05/19/18 05:18 Pulse 81 05/19/18 05:18 Resp 16 05/19/18 05:18 BP 134/68 05/19/18 05:18 Pulse Ox 96 05/19/18 05:18 Intake & Output 05/18/18 05/19/18 05/19/18 18:59 06:59 18:59 Intake Total 800 1150 800 Balance 800 1150 800 Intake: Intake, IV Titration 800 1150 800 Amount Sodium Chloride 0.9% 1, 800 1150 800 000 ml @ 100 mls/hr IV . Q10H [facility] Rx#:[id number] Other: Voiding Method Urinal Urinal Urinal # Voids 2 2 - Exam GENERAL: The patient is alert and oriented x3, not in any acute distress. Well developed, well nourished. HEENT: Pupils are round and equally reacting to light. EOMI. No scleral icterus. No conjunctival pallor. Normocephalic, atraumatic. No pharyngeal erythema. No thyromegaly. CARDIOVASCULAR: S1 and S2 present. No murmurs, rubs, or gallops. PULMONARY: Chest is clear to auscultation, no wheezing or crackles. ABDOMEN: Soft, nontender, nondistended, normoactive bowel sounds. No palpable organomegaly. MUSCULOSKELETAL: No joint swelling or deformity. EXTREMITIES: No cyanosis, clubbing, or pedal edema. NEUROLOGICAL: Gross neurological examination did not reveal any focal deficits. Patient lower examination shows symmetrical strength in both lower extremity SKIN: No rashes. - Labs CBC & Chem 7: 05/19/18 08:11 05/19/18 08:11 Labs: Abnormal Lab Results - Last 24 Hours (Table) 05/19/18 05/19/18 Range/Units 08:11 08:11 WBC 17.9 H (3.8-10.6) k/uL RBC 4.01 L (4.30-5.90) m/uL Hgb 12.8 L (13.0-17.5) gm/dL Hct 36.9 L (39.0-53.0) % Neutrophils # (Manual) 8.95 H (1.3-7.7) k/uL Lymphocytes # (Manual) 6.98 H (1.0-4.8) k/uL Monocytes # (Manual) 1.97 H (0-1.0) k/uL Glucose 126 H (74-99) mg/dL Magnesium 2.4 H (1.6-2.3) mg/dL Creatine Kinase 876 H (55-170) U/L Total Protein 5.2 L (6.3-8.2) g/dL Albumin 3.3 L (3.5-5.0) g/dL Microbiology - Last 24 Hours (Table) 05/17/18 15:53 Urine Culture - Final Urine,Clean Catch 05/17/18 18:30 Blood Culture - Preliminary Blood No Growth after 24 hours 05/17/18 16:13 Blood Culture - Preliminary Blood No Growth after 24 hours Assessment and Plan Plan: -Acute rhabdomyolysis, with high CPK. Start IV hydration and follow-up creatine kinase level is trending down. Hold Lasix 20 mg daily.. Continue with pain management -History of fall. CT of the chest and abdomen shows L2 fracture could be chronic more than acute. orthopedic consult is appreciated and he recommended a brace, steroids and patient might benefit from assisted placement -History of BPH continue with the Flomax -Hyperlipidemia continue with statin -Hypertension, start Norvasc 5, blood pressure is better controlled -Leukocytosis, patient got 1 dose of ceftriaxone and EGD. We'll check a blood culture. Follow-up white cell count is trending down from 22K to 14 K. UA and chest x-ray were negative for infection. No diarrhea as per patient. No rash DVT prophylaxis heparin GI prophylaxis Pepcid CODE STATUS full code as per patient discussed Current prognosis is guarded given multiple problems and severity PT/OT is pending for the patient. Most likely patient will benefit from assisted placement either for short or long-term
[2018-05-19] MEDS: PRAVASTATIN SODIUM 20 MG TAB PO SCH (20:15)
[2018-05-19] MEDS: LATANOPROST 0.005% OPHTH DROPS 2.5 ML BTL BOTH EYES SCH (20:15)
[2018-05-20] MEDS: SODIUM CHLORIDE 0.9% 1,000 ML IV SCH ×5 (02:36→15:21)
[2018-05-20] MEDS: HEPARIN SODIUM,PORCINE 5,000 UNIT/ML 1 ML VIAL SQ SCH ×2 (07:58→21:15)
[2018-05-20] MEDS: methylPREDNISolone SOD SUCCI 125 MG/2 ML VIAL IV SCH ×2 (07:59→21:14)
[2018-05-20] MEDS: CITALOPRAM HYDROBROMIDE 20 MG TAB PO SCH (07:59)
[2018-05-20] MEDS: FAMOTIDINE 20 MG/2 ML VIAL IV SCH ×2 (07:59→21:14)
[2018-05-20] MEDS: TAMSULOSIN 0.4 MG CAP.ER.24H PO SCH ×2 (07:59→21:15)
[2018-05-20] MEDS: amLODIPine 5 MG TAB PO SCH (07:59)
[2018-05-20 09:17] LABS: HCT 37.4 % (39.0-53.0); HGB 12.6 gm/dL (13.0-17.5); MCH 31.3 pg (25.0-35.0); MCHC 33.6 g/dL (31.0-37.0); MCV 93.1 fL (80.0-100.0); Platelet Count 181 k/uL (150-450); RBC 4.02 m/uL (4.30-5.90); RDW 13.8 % (11.5-15.5); WBC 20.3 k/uL (3.8-10.6)
[2018-05-20 11:10] LABS: Lymphocytes # (M) 7.31 k/uL (1.0-4.8); Monocytes # (M) 2.84 k/uL (0-1.0); Myelocytes % 1 %; Neutrophils # (M) 9.95 k/uL (1.3-7.7); Neutrophils % (M) 49 %; Nucleated Red Blood Cells 0 /100 WBC (0-0); Poikilocytosis (M) Present; Total Cells Counted 100
--- NOTE | 2018-05-20 15:38 | PN ---
PROGRESS NOTE The patient is seen for followup for rhabdomyolysis. The CK level did come down from 2855 to 876 yesterday. Today it is at 929. The patient's creatinine is 0.8 mg/dL. He is currently maintained on IV fluids in the form of normal saline at 100 mL an hours. PHYSICAL EXAMINATION: On examination today, blood pressure is 139/66, heart rate 64 per minute. Patient is afebrile. Examination of the heart: S1, S2. Examination lungs: Decreased breath sounds at bases. Abdomen is soft, nontender. Examination lower extremities shows no significant edema. RECORDS SPECIALIST exam is grossly intact. LAB: Sodium was 140, potassium 4.4, hemoglobin was 12.6 g/dL. CK level was 929 today. ASSESSMENT: 1. Rhabdomyolysis. CK levels has been decreasing. Patient is maintained on IV fluids. Patient remains on Pravachol, which I will discontinue. 2. History of fall with L2 fracture, which at this time I am not sure if this is acute or chronic. 3. Hypertension. Blood pressure is controlled. PLAN: DC Pravachol given the rhabdomyolysis. Continue with IV fluids. MMODL / IJN: [id number] /
[2018-05-20] MEDS: CALCIUM CARB-VIT D 500MG-200UN 1 EACH TAB PO SCH (16:47)
[2018-05-20] MEDS: LATANOPROST 0.005% OPHTH DROPS 2.5 ML BTL BOTH EYES SCH (21:15)
[2018-05-21] MEDS: methylPREDNISolone SOD SUCCI 125 MG/2 ML VIAL IV SCH (07:48)
[2018-05-21] MEDS: FAMOTIDINE 20 MG/2 ML VIAL IV SCH (07:52)
[2018-05-21 08:14] LABS: HCT 37.9 % (39.0-53.0); HGB 12.5 gm/dL (13.0-17.5); MCH 30.3 pg (25.0-35.0); Mean Platelet Volume 8.6; Platelet Count 166 k/uL (150-450); RBC 4.12 m/uL (4.30-5.90); RDW 13.4 % (11.5-15.5)
[2018-05-21 08:27] LABS: Anion Gap 9 mmol/L; Blood Urea Nitrogen 19 mg/dL (9-20); Calcium 8.2 mg/dL (8.4-10.2); Carbon Dioxide 22 mmol/L (22-30); Chloride 104 mmol/L (98-107); Creatine Kinase 489 U/L (55-170); Glucose 115 mg/dL (74-99); Potassium 5.1 mmol/L (3.5-5.1); Sodium 135 mmol/L (137-145)
[2018-05-21 08:44] LABS: Lymphocytes # (M) 8.17 k/uL (1.0-4.8); Metamyelocytes # (M) 0.19 k/uL (0); Metamyelocytes % 1 %; Neutrophils # (M) 8.93 k/uL (1.3-7.7); Neutrophils % (M) 47 %; Nucleated Red Blood Cells 0 /100 WBC (0-0); Poikilocytosis (M) Present; Total Cells Counted 200
[2018-05-21] MEDS: CALCIUM CARB-VIT D 500MG-200UN 1 EACH TAB PO SCH ×3 (08:54→17:13)
[2018-05-21] MEDS: HEPARIN SODIUM,PORCINE 5,000 UNIT/ML 1 ML VIAL SQ SCH ×2 (08:55→21:23)
[2018-05-21] MEDS: amLODIPine 5 MG TAB PO SCH (08:56)
[2018-05-21] MEDS: TAMSULOSIN 0.4 MG CAP.ER.24H PO SCH ×2 (08:56→21:22)
[2018-05-21] MEDS: CITALOPRAM HYDROBROMIDE 20 MG TAB PO SCH (08:57)
[2018-05-21] MEDS ORDERED: CHOLECALCIFEROL 1,000 UNIT TAB PO SCH (12:00)
--- NOTE | 2018-05-21 13:52 | P.PN ---
Subjective As a pleasant 87 years old male with past medical history of hypertension, arthritis, bladder infection become because of fall, as per patient he [facility] when he tripped and fell and hit his head, he didn't lose his consciousness. But he couldn't get up and he stayed overnight and he started shunting till his neighbor heard him next day afternoon. Patient currently denies chest pain, no dyspnea, no dizziness or syncope. No change in urine or bowel habits. As per patient he can control his urine, no fever. Patient states he has chronic left lower extremity weakness over 6 months and his been stable. As per patient usually walks short distances but he can do some shopping and at baseline and his been using a cane for about a year, although he has a walker but he hasn't been using it much. In the emergency room patient was afebrile, hypertensive. He has CT of the abdomen/pelvis and chest which showed mild to moderate compression of fracture of L2 possible chronic rather than acute as per radiology report. Pelvic x- rays negative. CT of the head and neck were negative for acute process. Chest x-ray is negative for acute pulmonary process. In the ED patient was found to have leukocytosis of 22K.. Sodium 137, potassium 3.7, creatinine 0.7. High creatinine kinase at 2855. UA wasn't suspicious for infection. 05/21/2018 Patient denies any back pain. No chest pain. No dyspnea. He is starting diet well. No abdominal pain. No nausea vomiting however patient has had an episode of diarrhea today. He'll keep monitoring and continuous check for C. diff. Objective - Vital Signs Vital signs: Vital Signs Temp 97.8 F 05/21/18 07:36 Pulse 56 L 05/21/18 08:15 Resp 20 05/21/18 08:15 BP 149/67 05/21/18 07:36 Pulse Ox 93 L 05/21/18 05:30 Intake & Output 05/20/18 05/21/18 05/21/18 18:59 06:59 18:59 Intake Total 1680 600 360 Output Total 600 600 Balance 1080 0 360 Weight 97.522 kg Intake: Intake, IV Titration 1200 Amount Sodium Chloride 0.9% 1, 1200 000 ml @ 100 mls/hr IV . Q10H [facility] Rx#:[id number] Oral 480 600 360 Output: Urine 600 600 Other: Voiding Method Diaper Urinal Toilet Incontinent Urinal # Voids 2 1 1 # Bowel Movements 2 1 - Exam GENERAL: The patient is alert and oriented x3, not in any acute distress. Well developed, well nourished. HEENT: Pupils are round and equally reacting to light. EOMI. No scleral icterus. No conjunctival pallor. Normocephalic, atraumatic. No pharyngeal erythema. No thyromegaly. CARDIOVASCULAR: S1 and S2 present. No murmurs, rubs, or gallops. PULMONARY: Chest is clear to auscultation, no wheezing or crackles. ABDOMEN: Soft, nontender, nondistended, normoactive bowel sounds. No palpable organomegaly. MUSCULOSKELETAL: No joint swelling or deformity. EXTREMITIES: No cyanosis, clubbing, or pedal edema. NEUROLOGICAL: Gross neurological examination did not reveal any focal deficits. Patient lower examination shows symmetrical strength in both lower extremity SKIN: No rashes. - Labs CBC & Chem 7: 05/21/18 07:32 05/21/18 07:32 Labs: Abnormal Lab Results - Last 24 Hours (Table) 05/21/18 05/21/18 Range/Units 07:32 07:32 WBC 19.0 H (3.8-10.6) k/uL RBC 4.12 L (4.30-5.90) m/uL Hgb 12.5 L (13.0-17.5) gm/dL Hct 37.9 L (39.0-53.0) % Neutrophils # (Manual) 8.93 H (1.3-7.7) k/uL Lymphocytes # (Manual) 8.17 H (1.0-4.8) k/uL Monocytes # (Manual) 1.90 H (0-1.0) k/uL Metamyelocytes # (Man) 0.19 H (0) k/uL Sodium 135 L (137-145) mmol/L Glucose 115 H (74-99) mg/dL Calcium 8.2 L (8.4-10.2) mg/dL Creatine Kinase 489 H (55-170) U/L Microbiology - Last 24 Hours (Table) 05/17/18 18:30 Blood Culture - Preliminary Blood No Growth after 72 hours 05/17/18 16:13 Blood Culture - Preliminary Blood No Growth after 72 hours Assessment and Plan Plan: -Acute rhabdomyolysis, with high CPK. Start IV hydration and follow-up creatine kinase level is trending down. Hold Lasix 20 mg daily.. Continue with pain management -History of fall. CT of the chest and abdomen shows L2 fracture could be chronic more than acute. orthopedic consult is appreciated and he recommended a brace, steroids and patient might benefit from residential placement -History of BPH continue with the Flomax -Hyperlipidemia continue with statin -Hypertension, start Norvasc 5, blood pressure is better controlled -Leukocytosis, patient got 1 dose of ceftriaxone and EGD. We'll check a blood culture. Follow-up white cell count is trending down from 22K to 14 K. UA and chest x-ray were negative for infection. No diarrhea as per patient. No rash DVT prophylaxis heparin GI prophylaxis Pepcid CODE STATUS full code as per patient discussed Current prognosis is guarded given multiple problems and severity PT/OT is pending for the patient. Most likely patient will benefit from residential placement either for short or long-term
[2018-05-21] MEDS: predniSONE 20 MG TAB PO SCH (14:57)
--- NOTE | 2018-05-21 19:01 | PN ---
PROGRESS NOTE Patient is seen for followup for rhabdomyolysis. His renal function is significantly well preserved, though his CK level has been decreasing from 2016 on initial admission to 489 today. On examination, blood pressure was 149/67, heart rate 56 per minute. Patient is afebrile. EXAMINATION OF THE HEART: S1, S2. EXAMINATION OF LUNGS: Bilateral breath sounds are heard. ABDOMEN: Soft, non-tender. Examination of lower extremities shows no evidence of edema. ADOPTION COUNSELOR exam is grossly intact. Labs show sodium 135, potassium 5.1, BUN 19, serum creatinine 0.67, calcium 8.2. ASSESSMENT: 1. Rhabdomyolysis, now improving. Statins were discontinued. 2. Hypertension, currently stable. Continue with the Norvasc. 3. Benign prostatic hypertrophy, maintained on Flomax. 4. History of fall with S2 fracture; not sure if this is acute or chronic. PLAN: Encourage increased oral intake. Patient is stable for discharge from nephrology standpoint. Follow up with CK levels as outpatient. I will check a TSH level if it has not been tested recently. MMODL / IJN: [id number] /
[2018-05-21] MEDS: FAMOTIDINE 20 MG TAB PO SCH (21:22)
[2018-05-21] MEDS: LATANOPROST 0.005% OPHTH DROPS 2.5 ML BTL BOTH EYES SCH (21:22)
[2018-05-22 08:17] LABS: HCT 35.8 % (39.0-53.0); HGB 12.2 gm/dL (13.0-17.5); MCHC 34.1 g/dL (31.0-37.0); Mean Platelet Volume 8.9; Platelet Count 162 k/uL (150-450); RBC 3.94 m/uL (4.30-5.90); RDW 13.5 % (11.5-15.5); WBC 19.8 k/uL (3.8-10.6)
[2018-05-22 09:50] LABS: Anion Gap 7 mmol/L; Blood Urea Nitrogen 17 mg/dL (9-20); Calcium 8.3 mg/dL (8.4-10.2); Carbon Dioxide 26 mmol/L (22-30); Chloride 102 mmol/L (98-107); Creatine Kinase 261 U/L (55-170); Glucose 94 mg/dL (74-99); Potassium 3.9 mmol/L (3.5-5.1); Sodium 135 mmol/L (137-145)
[2018-05-22] MEDS: CALCIUM CARB-VIT D 500MG-200UN 1 EACH TAB PO SCH ×3 (10:41→18:05)
[2018-05-22] MEDS: amLODIPine 5 MG TAB PO SCH (10:41)
[2018-05-22] MEDS: HEPARIN SODIUM,PORCINE 5,000 UNIT/ML 1 ML VIAL SQ SCH ×2 (10:42→20:08)
[2018-05-22] MEDS: FAMOTIDINE 20 MG TAB PO SCH ×2 (10:42→20:08)
[2018-05-22] MEDS: predniSONE 20 MG TAB PO SCH (10:42)
[2018-05-22] MEDS: CITALOPRAM HYDROBROMIDE 20 MG TAB PO SCH (10:42)
[2018-05-22] MEDS: TAMSULOSIN 0.4 MG CAP.ER.24H PO SCH ×2 (10:43→20:08)
[2018-05-22 11:34] LABS: Anisocytosis (M) Present; Band Neutrophils % 1 %; Lymphocytes # (M) 14.26 k/uL (1.0-4.8); Monocytes # (M) 0.79 k/uL (0-1.0); Neutrophils % (M) 24 %; Nucleated Red Blood Cells 0 /100 WBC (0-0); Poikilocytosis (M) Present; Total Cells Counted 200
[2018-05-22] MEDS: LATANOPROST 0.005% OPHTH DROPS 2.5 ML BTL BOTH EYES SCH (20:07)
--- NOTE | 2018-05-22 21:36 | P.PN ---
Subjective As a pleasant 87 years old male with past medical history of hypertension, arthritis, bladder infection become because of fall, as per patient he was [facility] night when he tripped and fell and hit his head, he didn't lose his consciousness. But he couldn't get up and he stayed overnight and he started shunting till his neighbor heard him next day afternoon. Patient currently denies chest pain, no dyspnea, no dizziness or syncope. No change in urine or bowel habits. As per patient he can control his urine, no fever. Patient states he has chronic left lower extremity weakness over 6 months and his been stable. As per patient usually walks short distances but he can do some shopping and at baseline and his been using a cane for about a year, although he has a walker but he hasn't been using it much. In the emergency room patient was afebrile, hypertensive. He has CT of the abdomen/pelvis and chest which showed mild to moderate compression of fracture of L2 possible chronic rather than acute as per radiology report. Pelvic x- rays negative. CT of the head and neck were negative for acute process. Chest x-ray is negative for acute pulmonary process. In the ED patient was found to have leukocytosis of 22K.. Sodium 137, potassium 3.7, creatinine 0.7. High creatinine kinase at 2855. UA wasn't suspicious for infection. 05/21/2018 Patient denies any back pain. No chest pain. No dyspnea. He is starting diet well. No abdominal pain. No nausea vomiting however patient has had an episode of diarrhea today. He'll keep monitoring and continuous check for C. diff. 6.718 Patient feels better, patient is medically stable for discharge pending placement Objective - Vital Signs Vital signs: Vital Signs Temp 98.5 F 05/22/18 15:30 Pulse 62 05/22/18 15:30 Resp 18 05/22/18 15:30 BP 148/67 05/22/18 15:30 Pulse Ox 94 L 05/22/18 15:30 Intake & Output 05/22/18 05/22/18 05/23/18 06:59 18:59 06:59 Intake Total 650 Balance 650 Intake: Oral 650 Other: Voiding Method Toilet Toilet Urinal Urinal # Voids 2 # Bowel Movements 0 - Exam GENERAL: The patient is alert and oriented x3, not in any acute distress. Well developed, well nourished. HEENT: Pupils are round and equally reacting to light. EOMI. No scleral icterus. No conjunctival pallor. Normocephalic, atraumatic. No pharyngeal erythema. No thyromegaly. CARDIOVASCULAR: S1 and S2 present. No murmurs, rubs, or gallops. PULMONARY: Chest is clear to auscultation, no wheezing or crackles. ABDOMEN: Soft, nontender, nondistended, normoactive bowel sounds. No palpable organomegaly. MUSCULOSKELETAL: No joint swelling or deformity. EXTREMITIES: No cyanosis, clubbing, or pedal edema. NEUROLOGICAL: Gross neurological examination did not reveal any focal deficits. Patient lower examination shows symmetrical strength in both lower extremity SKIN: No rashes. - Labs CBC & Chem 7: 05/22/18 06:00 05/22/18 06:50 Labs: Abnormal Lab Results - Last 24 Hours (Table) 05/22/18 05/22/18 Range/Units 06:00 06:50 WBC 19.8 H (3.8-10.6) k/uL RBC 3.94 L (4.30-5.90) m/uL Hgb 12.2 L (13.0-17.5) gm/dL Hct 35.8 L (39.0-53.0) % Lymphocytes # (Manual) 14.26 H (1.0-4.8) k/uL Sodium 135 L (137-145) mmol/L Calcium 8.3 L (8.4-10.2) mg/dL Creatine Kinase 261 H (55-170) U/L Microbiology - Last 24 Hours (Table) 05/17/18 18:30 Blood Culture - Preliminary Blood No Growth after 120 hours 05/17/18 16:13 Blood Culture - Preliminary Blood No Growth after 120 hours Assessment and Plan Plan: -Acute rhabdomyolysis, with high CPK. Start IV hydration and follow-up creatine kinase level is trending down. Hold Lasix 20 mg daily.. Continue with pain management -History of fall. CT of the chest and abdomen shows L2 fracture could be chronic more than acute. orthopedic consult is appreciated and he recommended a brace, steroids and patient might benefit from [facility] placement -History of BPH continue with the Flomax -Hyperlipidemia continue with statin -Hypertension, start Norvasc 5, blood pressure is better controlled -Leukocytosis, patient got 1 dose of ceftriaxone and EGD. We'll check a blood culture. Follow-up white cell count is trending down from 22K to 14 K. UA and chest x-ray were negative for infection. No diarrhea as per patient. No rash DVT prophylaxis heparin GI prophylaxis Pepcid CODE STATUS full code as per patient discussed Current prognosis is guarded given multiple problems and severity PT/OT is pending for the patient. Most likely patient will benefit from [facility] placement either for short or long-term
[2018-05-22 23:49] VITALS: PULSE 64; RESP 16
[2018-05-23 06:15] VITALS: BP 169/80; TEMP 98.2
[2018-05-23 07:27] LABS: HCT 38.4 % (39.0-53.0); MCH 30.9 pg (25.0-35.0); MCHC 33.8 g/dL (31.0-37.0); MCV 91.5 fL (80.0-100.0); Mean Platelet Volume 8.1; Platelet Count 159 k/uL (150-450); RDW 13.5 % (11.5-15.5); WBC 19.4 k/uL (3.8-10.6)
[2018-05-23 08:02] LABS: Carbon Dioxide 28 mmol/L (22-30); Chloride 101 mmol/L (98-107); Glucose 83 mg/dL (74-99)
[2018-05-23 08:05] LABS: Anion Gap 8 mmol/L; Blood Urea Nitrogen 14 mg/dL (9-20); Calcium 8.4 mg/dL (8.4-10.2); Potassium 3.4 mmol/L (3.5-5.1); Sodium 137 mmol/L (137-145)
[2018-05-23 08:31] LABS: Eosinophils # (M) 0.19 k/uL (0-0.7); Lymphocytes # (M) 15.52 k/uL (1.0-4.8); Metamyelocytes # (M) 0.39 k/uL (0); Metamyelocytes % 2 %; Monocytes # (M) 0.39 k/uL (0-1.0); Neutrophils % (M) 16 %; Nucleated Red Blood Cells 0 /100 WBC (0-0); Total Cells Counted 200
[2018-05-23] MEDS: predniSONE 20 MG TAB PO SCH (08:45)
[2018-05-23] MEDS: CALCIUM CARB-VIT D 500MG-200UN 1 EACH TAB PO SCH ×2 (08:45→12:50)
[2018-05-23] MEDS: HEPARIN SODIUM,PORCINE 5,000 UNIT/ML 1 ML VIAL SQ SCH (08:45)
[2018-05-23] MEDS: amLODIPine 5 MG TAB PO SCH (08:45)
[2018-05-23] MEDS: TAMSULOSIN 0.4 MG CAP.ER.24H PO SCH (08:46)
[2018-05-23] MEDS: CITALOPRAM HYDROBROMIDE 20 MG TAB PO SCH (08:46)
[2018-05-23] MEDS: FAMOTIDINE 20 MG TAB PO SCH (08:46)
[2018-05-23] MEDS ORDERED: amLODIPine 5 MG TAB PO STA (12:08)
[2018-05-23] MEDS ORDERED: POTASSIUM CHLORIDE ER 20 MEQ TAB.ER PO STA (13:13)
[2018-05-23 13:50] VITALS: BMI 29.1
--- NOTE | 2018-05-23 15:24 | PN ---
PROGRESS NOTE The patient is seen for followup for rhabdomyolysis. His CK level is down to 261 now. Patient feels well. He wants to go home. PHYSICAL EXAMINATION: Blood pressure is 169/80, heart rate 64 per minute. He is afebrile. Examination of the heart S1 and S2. Examination of the lungs bilateral breath sounds are heard. Abdomen is soft, nontender. Examination of lower extremities shows trace edema bilaterally. TITLE 1 TUTOR exam is grossly intact. LABS: Sodium 137, potassium 3.4, chloride 101, BUN , CO2 28, serum creatinine 0.79, hemoglobin 13.0 g/dL. ASSESSMENT: 1. Rhabdomyolysis. He is currently off statins and with improving CK levels. The patient is stable for discharge from Nephrology standpoint. 2. Hypokalemia associated with decreased oral intake. We will replace. Patient is not on any diuretics at this time. 3. Hypertension, currently controlled. 4. History of fall with S2 fracture. 5. Benign prostatic hypertrophy, maintained on Flomax. PLAN: Continue off of statins. Upon discharge, the patient is stable for discharge from Nephrology standpoint. MMODL / IJN: [id number] /
[2018-05-24] MEDS ORDERED: amLODIPine 10 MG TAB PO SCH (09:00)
== END 2018-05-23 15:45 | disposition home or self-care (01) | DRG 558 ==
LOC: EC 11:34 → 5MS5E 15:55
PROVIDERS: ADMIT Hospitalist; ATTEND Hospitalist
DX: M62.82 Rhabdomyolysis (principal); S32.028A Other fracture of second lumbar vertebra, initial encounter for closed fracture; E78.5 Hyperlipidemia, unspecified; D72.829 Elevated white blood cell count, unspecified; E87.6 Hypokalemia; S09.90XA Unspecified injury of head, initial encounter; G89.29 Other chronic pain; I10 Essential (primary) hypertension; N40.0 Benign prostatic hyperplasia without lower urinary tract symptoms; M19.90 Unspecified osteoarthritis, unspecified site; R19.7 Diarrhea, unspecified; M54.5 Low back pain; M54.2 Cervicalgia; R51 Headache; Z79.899 Other long term (current) drug therapy; Z85.828 Personal history of other malignant neoplasm of skin; Z85.51 Personal history of malignant neoplasm of bladder; Z87.440 Personal history of urinary (tract) infections; Z82.49 Family history of ischemic heart disease and other diseases of the circulatory system; W01.0XXA Fall on same level from slipping, tripping and stumbling without subsequent striking against object, initial encounter; Y92.007 Garden or yard of unspecified non-institutional (private) residence as the place of occurrence of the external cause
CPT/HCPCS: 36415; 70450; 71045; 71260; 72125; 72170; 74177; 80048; 80053; 80076; 81001; 82550; 82553; 83605; 83735; 84443; 84484; 85025; 85610; 85730; 87040; 87086; 93005; 96361; 96374; 96375; 99291